=== PATIENT | female | born 1930 | race Two or more races ===

== ENCOUNTER 2018-06-09 21:27 | Emergency (ER) | payer MEDICARE, MEDICAID ==
[~2018-06-09] VITALS: Ht 142.2 cm; Wt 61.2 kg
--- NOTE | 2018-06-09 22:11 | NUR ---
Xray at bedside
--- NOTE | 2018-06-09 23:09 | NUR ---
Note lissett in EDM - 06/09/18 at 2318 by NIDHI Patient discharged to home in stable conditon. Written and verbal after care instructions given. Patient verbalizes understanding of instructions. Ambulated from ER with stable gait. All belongings with patient.
[2018-06-09] MEDS ORDERED: LIDOCAINE 5% PATCH TD ONE ×2 (23:45→23:52)
[2018-06-09] MEDS ORDERED: GABAPENTIN 100 MG CAPSULE PO ONE (23:45)
[2018-06-09] MEDS ORDERED: GABAPENTIN 300 MG CAPSULE ONE (23:51)
--- NOTE | 2018-06-09 23:55 | NUR ---
Patient discharged to home in stable conditon. Written and verbal after care instructions given. Patient verbalizes understanding of instructions. Ambulated from ER with stable gait. All belongings with patient.
[2018-06-09] MEDS ORDERED: GABAPENTIN 100 MG CAPSULE ONE (23:56)
[2018-06-09 23:57] VITALS: BP 121/68
== END 2018-06-09 23:58 | disposition home or self-care (01) ==
LOC: ER 21:27
DX: S20.212A Contusion of left front wall of thorax, initial encounter (principal); M25.551 Pain in right hip; I10 Essential (primary) hypertension; W18.30XA Fall on same level, unspecified, initial encounter; Y93.89 Activity, other specified; Y92.89 Other specified places as the place of occurrence of the external cause; Y99.8 Other external cause status
CPT/HCPCS: 71101; 72170; A4663